=== PATIENT | female | born 1960 ===

== ENCOUNTER → 2018-07-01 21:19 | Outpatient (REF) | payer OTHER, SELFPAY ==
[2018-07-01 21:48] LABS: Add Manual Diff / Slide Review NO; Basophils Absolute Auto 0 /uL (0-100); Basophils Percent Auto 0.5 % (0-2); Eosinophils Absolute Auto 300 /uL (0-450); Eosinophils Percent Auto 3.1 % (2-4); Hematocrit 43.6 % (36-46); Hemoglobin 14.4 g/dL (12.0-16.0); Lymphocytes Absolute Auto 2300 /uL (1100-4500); Lymphocytes Percent Auto 27.1 % (25-40); Mean Corpuscular HGB Conc 33.1 % (30-36); Mean Corpuscular Volume 87.5 fL (80-100); Monocytes Absolute Auto 600 /uL (0-900); Monocytes Percent Auto 7.5 % (3-14); Neutrophils Absolute Auto 5200 /uL (1500-7000); Neutrophils Percent Auto 61.8 % (50-75); Platelet Count 265 X10^3/uL (150-400); Red Blood Cell Count 4.98 X10^6/uL (4.0-5.2); Red Cell Distribution Width 13.7 % (11.6-14.8); White Blood Cell Count 8.5 X10^3/uL (4.5-11.0)
[2018-07-01 22:31] LABS: Thyroid Stimulating Hormone 0.02 uIU/mL (0.47-4.68)
[2018-07-01 22:36] LABS: Free T3, Triiodothyronine Free 4.89 pg/mL (2.77-5.27); Free T4, Direct Thyroxine 1.65 ng/dL (0.78-2.19); Triiodothryronine T3 Uptake 33.2 % (23.5-40.5)
[2018-07-02 08:42] LABS: High Sensitivity CRP - Cardiac 5.1 mg/L (1.0-3.0)
[2018-07-04 10:56] LABS: Thyroxine Binding Globulin 20.2 mcg/mL (13.5-30.9)
[2018-07-07 17:01] LABS: Triiodothyronine T3 Reverse 20 ng/dL (8-25)
== END ==
LOC: LAB 21:19
PROVIDERS: Visit Provider Naturopath
DX: E03.9 Hypothyroidism, unspecified (principal); J45.909 Unspecified asthma, uncomplicated; R79.82 Elevated C-reactive protein (CRP); R09.89 Other specified symptoms and signs involving the circulatory and respiratory systems; Z86.14 Personal history of Methicillin resistant Staphylococcus aureus infection
CPT/HCPCS: 36415; 84439; 84443; 84479; 84481; 84482; 85025; 86140